=== PATIENT | female | born 1950 ===

== ENCOUNTER 2017-02-15 19:18 | Emergency (ER) | payer SELFPAY ==
[2017-02-15 19:26] VITALS: PULSE 81; RESP 18; TEMP 98.3; O2SAT 99
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
[2017-02-15 22:25] VITALS: BP 145/86
--- NOTE | 2017-02-16 14:38 | RAD ---
PROCEDURE: Radiographs of Nasal Bones HISTORY: r/o nasal bone fx COMPARISON: None available. TECHNIQUE: Frontal and lateral radiographs of the nasal bones. FINDINGS: Right-sided nasal bones appear intact. Note that the radiograph of the left nasal bones is limited due to patient rotation and nasal bones are poorly delineated. If in indicated, recommend followup CT scan of the maxillofacial skeleton/ nasal bones which is much more sensitive for detecting fractures that may be missed on plain film radiographs. IMPRESSION: Bones. Right nasal bones appears intact. Limited evaluation of the left nasal due to patient rotation. Consider followup CT scan if further evaluation is required note that this report was placed in PA review folder for followup.
== END 2017-02-15 22:00 | disposition home or self-care (01) ==
LOC: H.ER 19:18
DX: S02.2XXA Fracture of nasal bones, initial encounter for closed fracture (principal); W22.8XXA Striking against or struck by other objects, initial encounter; Y92.89 Other specified places as the place of occurrence of the external cause; E11.9 Type 2 diabetes mellitus without complications